=== PATIENT | male | born 1965 | race Caucasian/White ===

== ENCOUNTER → 2021-01-19 | Outpatient (CLI) | payer MEDICARE ==
[~2021-01-19] MED LIST: LIDOCAINE HCL 1% LOCAL INJ 20 ML VIAL ONE
[2021-01-19 09:02] LABS: HEMOGLOBIN 14.5 g/dL (14.0-18.0)
[2021-01-19 09:32] LABS: INR 0.86; PROTHROMBIN TIME 12.1 seconds (11.9-14.5)
[2021-01-19 09:33] LABS: PARTIAL THROMBOPLASTIN TIME 28.9 seconds (23.8-35.5)
[2021-01-19 11:33] LABS: BODY FLUID APPEARANCE CLEAR; BODY FLUID COLOR COLORLESS; BODY FLUID TYPE CSF; RBC,BODY FLUID < 200 cells/uL; WBC,BODY FLUID 1 cells/uL
[2021-01-22 19:15] LABS: MYELIN BASIC PROTEIN, CSF 4.4 ng/mL (0.0-4.7)
[2021-01-22 20:08] LABS: IGG/ALB RATIO CSF 0.11 (0.00-0.25)
== END ==
LOC: DX 08:26
PROVIDERS: ATTEND Psychiatry & Neurology Clinical Neurophysiology
DX: M50.10 Cervical disc disorder with radiculopathy, unspecified cervical region (principal)
CPT/HCPCS: 36415; 62328; 82040; 82784; 82945; 83873; 83916; 84157; 85014; 85049; 85610; 85730; 87070; 87205; 89051; J2001

== ENCOUNTER → 2021-08-15 | Outpatient (CLI) | payer MEDICARE ==
[2021-08-15 09:28] LABS: HEMOGLOBIN 15.1 g/dL (14.0-18.0)
[2021-08-15 11:46] LABS: INR 0.91; PROTHROMBIN TIME 13.1 seconds (11.9-14.5)
[2021-08-15 11:47] LABS: PARTIAL THROMBOPLASTIN TIME 24.3 seconds (23.8-35.5)
== END ==
LOC: DX 07:57
PROVIDERS: ATTEND Psychiatry & Neurology Clinical Neurophysiology
DX: G93.2 Benign intracranial hypertension (principal)
CPT/HCPCS: 36415; 62328; 77003; 85014; 85049; 85610; 85730

== ENCOUNTER 2021-08-20 11:51 | Emergency (ER) | payer MEDICARE ==
[~2021-08-20] VITALS: Ht 180.3 cm; Wt 108.9 kg
[2021-08-20 14:27] VITALS: BP 135/78
== END 2021-08-20 14:29 | disposition home or self-care (01) ==
LOC: ER 12:37
DX: G97.1 Other reaction to spinal and lumbar puncture (principal)
CPT/HCPCS: 99282

== ENCOUNTER → 2021-08-21 | Outpatient (CLI) | payer MEDICARE | LOC: DX 13:32 | PROVIDERS: ATTEND Radiology Vascular & Interventional Radiology | DX: G97.1 Other reaction to spinal and lumbar puncture (principal) | CPT/HCPCS: 62273; 77003 ==